=== PATIENT | male | born 2000 | race Caucasian/White ===

== ENCOUNTER 2022-11-06 19:47 | Emergency (ER) | payer SELFPAY ==
[2022-11-06] MEDS ORDERED: Diphtheria,Pertussis(Acell),Tetanus Vaccine 0.5 ML Syringe IM ONE (20:22)
[2022-11-06] MEDS ORDERED: Lidocaine 1% 10 ML MDV INJECT ONE (20:22)
[2022-11-06] MEDS ORDERED: Cephalexin 500 MG Cap PO ONE (21:12)
== END 2022-11-06 21:41 | disposition home or self-care (01) ==
LOC: JD.ED 19:47
DX: S62.633A Displaced fracture of distal phalanx of left middle finger, initial encounter for closed fracture (principal); Z23 Encounter for immunization; X58.XXXA Exposure to other specified factors, initial encounter
CPT/HCPCS: 73140; 90471; 90715; 99283; A9270

== ENCOUNTER 2023-05-22 01:36 | Emergency (ER) | payer OTHER | END 2023-05-22 02:52 | disposition home or self-care (01) | LOC: JD.ED 01:36 | DX: S63.642A Sprain of metacarpophalangeal joint of left thumb, initial encounter (principal); X50.0XXA Overexertion from strenuous movement or load, initial encounter | CPT/HCPCS: 29125; 73130-26-LT; 73130-LT; 99282; 99283 ==